=== PATIENT | male | born 1980 | race Caucasian/White ===

== ENCOUNTER → 2025-07-06 07:19 | Outpatient (CLI) | payer OTHER, SELFPAY ==
--- NOTE | 2025-07-06 07:23 | DI.MRI.S_ITS ---
PROCEDURE: MR SHOULDER RT WO CON INDICATIONS: Acute pain of right shoulder TECHNIQUE: Noncontrast oblique coronal T2 fast spin echo with fat saturation, oblique sagittal T1 spin echo and T2 fast spin echo with fat saturation, axial T1 spin echo and T2 fast spin echo with fat saturation through the shoulder. COMPARISON: None. FINDINGS: Image quality: Excellent. Rotator cuff: Superficial, less than 25%, bursal sided fraying of the supraspinatus and anterior infraspinatus at the footprint. No high-grade tear. Mild insertional tendinosis the superior subscapularis at the lesser tuberosity. No high-grade tear. Teres minor is intact. No significant atrophy or fatty infiltration of the rotator cuff musculature. Biceps: Mild tendinosis at the biceps mikel. No tear. Osseous structures and articular cartilage: No fracture, or suspicious marrow replacing process, or contusion. The articular cartilage is intact. 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 Small volume subacromial bursitis. Intra-articular: The labrum is intact. Mild sprain of the coracohumeral ligament. The capsule is otherwise intact. Extra-articular: Normal deltoid. No visualized axillary lymphadenopathy. The superficial soft tissues are unremarkable. IMPRESSION: 1. Superficial bursal sided fraying of the supraspinatus and anterior infraspinatus without high-grade tear. 2. Mild sprain of the coracoid humeral ligament. 3. Mild tendinosis of long head of the biceps. Dictated by: Israel Rose M.D. on 07/06/2025 at 11:15 Approved by: Israel Rose M.D. on 07/06/2025 at 12:06
== END ==
LOC: MRI 07:21
PROVIDERS: Referring Provider Orthopaedic Surgery; Visit Provider Orthopaedic Surgery
DX: S43.411A Sprain of right coracohumeral (ligament), initial encounter (principal); M25.511 Pain in right shoulder; M67.921 Unspecified disorder of synovium and tendon, right upper arm
CPT/HCPCS: 73221